=== PATIENT | male | born 1975 | race Caucasian/White ===

== ENCOUNTER 2020-09-03 09:50 | Emergency (ER) | payer BC | END 2020-09-03 10:23 | disposition home or self-care (01) | LOC: JVIRT 09:50 | DX: Z11.59 Encounter for screening for other viral diseases (principal) | CPT/HCPCS: C9803; Q3014-GT; U0003 ==

== ENCOUNTER 2020-09-08 14:16 | Emergency (ER) | payer BC | END 2020-09-08 15:06 | disposition home or self-care (01) | LOC: JVIRT 14:16 | DX: U07.1 COVID-19 (principal) | CPT/HCPCS: C9803; G2012-GT; U0003 ==